=== PATIENT | female | born 1995 | race Caucasian/White ===

== ENCOUNTER 2016-12-31 17:17 | Emergency (ER) | payer OTHER ==
--- NOTE | 2016-12-31 18:31 | DIAGNOSTIC IMAGING REPORT ---
PROCEDURE: XR CHEST 2 VIEW INDICATION: FEVER, initial encounter TECHNIQUE: PA and lateral view. COMPARISON: None. FINDINGS: Lungs are clear. Cardiovascular structures are normal. Bony thorax is unremarkable. IMPRESSION: 1. Negative chest.
--- NOTE | 2016-12-31 19:05 | ED CLINICAL REPORT ---
Clinical Report - Physicians/Mid Levels [facility] [address] [place] [address] 12/31/2016 17:17 Patient: DANIA OCASIO Time Seen: 17:46; initial patient contact, initial documentation, patient care assumed. Arrived- By private vehicle. Historian- patient. HISTORY OF PRESENT ILLNESS Chief Complaint: COUGH, FEVER and MUSCLE ACHES. This started about 2 days and is still present. The illness is described as moderate. The patient has had a cough, mild difficulty breathing . The patient has also had wheezing, nasal congestion, fever and chills. She has had muscle aches and a nasal discharge. No sputum production, chest discomfort or pain, sore throat or sinus pressure. No sinus drainage or ear pain. Additional history - No known contact with a sick individual. Similar symptoms previously: None. Recent medical care: Not recently seen/assessed. REVIEW OF SYSTEMS The patient has had a headache. No vomiting or diarrhea. Denies current . All systems otherwise negative, except as recorded above. PAST HISTORY See nurses notes. PROBLEMS: Knee Injury. Cough. Asthma. --17:26 Natasha Stone R.N. ADDITIONAL SURGERIES: None. --17:26 Natasha Stone R.N. SOCIAL HISTORY Never smoker. Not exposed to second-hand smoke at home. No alcohol use or drug use. No recent travel. Is a local resident. FAMILY HISTORY Negative. ADDITIONAL NOTES The nursing notes have been reviewed with agreement regarding the chief complaint, HPI, ROS, PMH and patient medications and allergies. PHYSICAL EXAM Vital Signs: 12/31/2016 17:20 BP: 119/69. HR: 110. RR: 20. O2 saturation: 99%. Temp: 102.6 F. Pain level now: 9/10. Have been reviewed as abnormal and appear to be correct. Blood pressure normal. Tachycardic. Respiratory rate normal. Febrile. Oxygen saturation normal. Appearance: Alert. No acute distress. Eyes: Pupils equal, round and reactive to light. Eyes normal inspection. ENT: Ears normal. Nose normal. Pharynx normal. Uvula midline. Neck: Normal inspection. Neck supple. CVS: Heart rate / rhythm abnormal. Tachycardia (ventricular rate = 116). Heart sounds normal. Pulses normal. Respiratory: No respiratory distress. Breath sounds abnormal. Expiratory and inspiratory mild bilateral wheezes diffusely. Abdomen: Soft and nontender. No organomegaly. Back: Normal inspection. Skin: Skin warm and dry. Normal skin color. No rash. Normal skin turgor. Extremities: Extremities exhibit normal ROM. No lower extremity edema. Neuro: Oriented X 3. No motor deficit. No sensory deficit. LABS, X-RAYS, AND EKG Chest X-ray: Normal Chest X-Ray. (IMPRESSION: 1. Negative chest. Electronically Final signed by:Josue Singer MD 12/31/2016 6:31:20 PM). The X-rays were interpreted by the radiologist and contemporaneously by me. Laboratory Tests: Rapid Influenza Screen: (BRITTNEY: 12/31/2016 17:28) ( [id number] 12/31/2016 17:58) Final results SPECIMEN DESCRIPTION: SINUS Test Result Flag Units (Reference) RAPID INFLUENZA SCREEN CALLED TO: SARAH -- DATE: 12/31/16 INFLUENZA A: POSITIVE SCREEN FOR INFLUENZA A INFLUENZA B: NEGATIVE SCREEN FOR INFLUENZA B . PROGRESS AND PROCEDURES Course of Care: 1854. Resp even and unlabored, B breath sounds with still mild B insp wheezes, pt stated she felt much better and could breathe better. Patient counseled in person regarding the patient's stable condition, test results and diagnosis. 18:54. Differential Diagnosis: Other possible considerations: flu, uri, viral illness, bronchitis, asthma, pneumonia. Above considerations are based on history, physical exam and X-Ray data. Differential diagnosis was discussed with patient. Disposition: Discharged home in good and improved condition (19:05). Condition: good and stable. CLINICAL IMPRESSION Influenza type A with upper respiratory infection. Acute fever INSTRUCTIONS Alternate Tylenol (Acetaminophen) and Motrin (Ibuprofen) for fever, temperature greater than 101 degrees orally. Take according to label instructions. Do not work today, for two days. Drink plenty of fluids for the next 24 hours until better. Warnings: GENERAL WARNINGS: Return or contact your physician immediately if your condition worsens or changes unexpectedly, if not improving as expected, or if other problems arise. Specifically return if problem worsens. Prescription Medications: Albuterol HFA oral inhaler: inhale 1 to 2 puffs every four to six hours as needed for difficulty breathing. Dispense one (1) unit. No refills. Motrin 600 mg tablets: take 1 tablet orally every 6 hours as needed for fever. Dispense twenty (20). No refill. Follow-up: Follow up with your doctor in about five days even if well. Call for an appointment. Summary of care provided to patient. Understanding of the discharge instructions verbalized by patient. (Electronically signed by Lucero Cuevas A.R.N.P. 12/31/2016 19:20)
--- NOTE | 2016-12-31 19:05 | ED NURSING NOTES ---
Clinical Report - Nurses [facility] [address] [place] [address] 12/31/2016 17:17 Patient: DANIA OCASIO TRIAGE Triage time 1720. Acuity: LEVEL 4. Chief Complaint: FEVER, COUGH and BODY ACHES. 17:20. --17:27 Natasha Stone R.N. 17:20 12/31/16. BP: 119/69. HR: 110. RR: 20. O2 saturation: 99%. Temp: 102.6 F. Pain level now: 08/06. Additional comments: genneral body aches. --17:27 Natasha Stone R.N. Weight: 50.1 kg measured. Height/Length: 60 inches Per Patient. BMI: 21.6. Growth Chart Percentile: Weight: 15.6%. Height/Length: 4.6%. --17:25 Natasha Stone R.N. Medications Tylenol at 0500. --17:27 Natasha Stone R.N. None. --17:27 Natasha Stone R.N. Allergies No Known Drug Allergy. --17:26 Natasha Stone R.N. History Arrived by private vehicle. Historian: patient. Accompanied by family. Primary physician (susie). The patient has had chest congestion, chills, fatigue and a headache. PAST MEDICAL HX: Last normal menstrual period- 12/26. SOCIAL HX: Never smoker. No alcohol use or drug use. --17:27 Natasha Stone R.N. PROBLEMS: Knee Injury. Cough. Asthma. --17:26 Natasha Stone R.N. ADDITIONAL SURGERIES: None. --17:26 Natasha Stone R.N. Interventions ID band on patient. To treatment room. --17:27 Natasha Stone R.N. PHYSICAL ASSESSMENT 17:20. Ambulatory to room. GENERAL / NEURO / PSYCH: Alert. Oriented X 4. HEENT: Runny nose. Mucous membranes are pink. RESPIRATORY: Respirations not labored. GI / : Abdomen soft. SKIN: Skin is dry. Hot skin. --17:28 Natasha Stone R.N. NURSING PROGRESS NOTES 17:20. Head of bed elevated. Patient identifiers checked. Call light placed in reach. Side rails up. Bed placed in lowest position. Patient ready for evaluation- chart flagged. --17:27 Natasha Stone R.N. 17:28 12/31/16. Care transferred and report given (MAGGIE Lee). --17:28 Natasha Stone R.N. late entry - 17:30 12/31/16. Patient ID band checked for patient name and birthdate: patient confirmed. Flu swab obtained by RN via nasal swab. Labeled in the presence of the patient. --18:02 Santa Isaacs R.N. 17:40 12/31/2016 Ibuprofen PO Tablets 600 mg given. Allergies verified and confirmed 5 rights. --17:40 Santa Isaacs R.N. 17:59 12/31/16. ( Lab phoned positive influenza A result..). --17:59 Deepali Kong R.N. 18:04 12/31/2016 ALBUTEROL NEB W ATROVENT Neb TX Nebulizer 1 unit dose given. Given by the respiratory therapist. Allergies verified and confirmed 5 rights. --18:04 Kat Becker. DISPOSITION / DISCHARGE 19:15 12/31/16. Departure time: 19:15 Dec 31 2016. Condition at departure: improved and stable. The goals identified in the patient's plan of care were met. No learning barriers present. Reviewed medication(s) side effects, precautions, dosing and course information. Prescription(s) given to the patient. Patient verbalized understanding. Written instructions provided in Telugu. The patient was discharged home and accompanied by family. She left the Emergency Department ambulatory and via private vehicle. Family member driving. --19:15 Santa Isaacs R.N. 19:15 12/31/16. BP: 96/51. HR: 90. RR: 18. O2 saturation: 100%. Temp: 101.0 F. Pain level now 03/06. --19:15 Santa Isaacs R.N. Locked/Released at 12/31/2016 19:16 by Santa Isaacs R.N.
--- NOTE | 2016-12-31 19:05 | ED ORDER SUMMARY ---
..... Patient: DANIA OCASIO OrderSheet [facility] VisitID: [id number] [address] [place] [address] 21y, F Registration Date/Time: 12/31/2016 ORDER SHEET Weight: 50.1 kg (measured) Allergies: No Known Drug Allergy GENERAL ORDERS: Rapid Influenza Screen (Nasal Pharyngeal) (sinus) Urgent (17:38 12/31/2016 EInderbitzen R.N. verbal order read back to HBivens A.R.N.P.) (17:45 EInderbitzen R.N.) Chest 2V Urgent (17:55 12/31/2016 HBivens A.R.N.P.) (Ack 17:57 TBergley) (18:16 TBergley) MEDICATION ORDERS: Ibuprofen PO 600 mg (NOW) (17:39 12/31/2016 EInderbitzen R.N. verbal order read back to HBivens A.R.N.P.) (17:40 EInderbitzen R.N.) Albuterol Neb w Atrovent 1 unit dose (NOW) (17:55 12/31/2016 HBivens A.R.N.P.) (18:04 Missy) IV FLUIDS: ORDER SHEET NOTES: [Electronically signed by Santa Isaacs R.N. (19:16 12/31/2016)] [Electronically signed by Lucero Cuevas A.R.N.P. (19:20 12/31/2016)] [Electronically locked/signed by Santa Isaacs R.N. (19:16 12/31/2016)]
--- NOTE | 2016-12-31 19:05 | ED ORDER SUMMARY ---
..... Patient: DANIA OCASIO OrderSheet [facility] VisitID: [id number] [address] [place] [address] 21y, F Registration Date/Time: 12/31/2016 ORDER SHEET Weight: 50.1 kg (measured) Allergies: No Known Drug Allergy GENERAL ORDERS: Rapid Influenza Screen (Nasal Pharyngeal) (sinus) Urgent (17:38 12/31/2016 EInderbitzen R.N. verbal order read back to HBivens A.R.N.P.) (17:45 EInderbitzen R.N.) Chest 2V Urgent (17:55 12/31/2016 HBivens A.R.N.P.) (Ack 17:57 TBergley) (18:16 TBergley) MEDICATION ORDERS: Ibuprofen PO 600 mg (NOW) (17:39 12/31/2016 EInderbitzen R.N. verbal order read back to HBivens A.R.N.P.) (17:40 EInderbitzen R.N.) Albuterol Neb w Atrovent 1 unit dose (NOW) (17:55 12/31/2016 HBivens A.R.N.P.) (18:04 Missy) IV FLUIDS: ORDER SHEET NOTES: [Electronically signed by Santa Isaacs R.N. (19:16 12/31/2016)] [Electronically signed by Lucero Cuevas A.R.N.P. (19:20 12/31/2016)] [Electronically locked/signed by Santa Isaacs R.N. (19:16 12/31/2016)]
--- NOTE | 2016-12-31 19:20 | ED DISCHARGE INSTRUCTIONS ---
Patient: DANIA OCASIO General Instructions [facility] VisitID: [id number] [address] [place] [address] 21y, F Registration Date/Time: 12/31/2016 Influenza type A with upper respiratory infection. Acute fever INSTRUCTIONS Alternate Tylenol (Acetaminophen) and Motrin (Ibuprofen) for fever, temperature greater than 101 degrees orally. Take according to label instructions. Do not work today, for two days. Drink plenty of fluids for the next 24 hours until better. Warnings: GENERAL WARNINGS: Return or contact your physician immediately if your condition worsens or changes unexpectedly, if not improving as expected, or if other problems arise. Specifically return if problem worsens. Prescription Medications: Albuterol HFA oral inhaler: inhale 1 to 2 puffs every four to six hours as needed for difficulty breathing. Dispense one (1) unit. No refills. Motrin 600 mg tablets: take 1 tablet orally every 6 hours as needed for fever. Dispense twenty (20). No refill. Follow-up: Follow up with your doctor in about five days even if well. Call for an appointment. Summary of care provided to patient. Understanding of the discharge instructions verbalized by patient. ADDITIONAL INFORMATION Febrile Illness, Uncertain Cause (Adult) You have a fever, but the cause is not certain. A fever is a natural reaction of the body to an illness such as infections due to a virus or bacteria. In most cases, the temperature itself is not harmful. It actually helps the body fight infections. A fever does not need to be treated unless you feel very uncomfortable. Sometimes a fever can be an early sign of a more serious infection. Therefore, you should watch for the signs listed below. Home Care: If signs and symptoms are severe, rest at home for the first 2-3 days. When you resume activity, don't let yourself get too tired. Stay away from cigarette smoke (yours and other peoples). You may use acetaminophen (Tylenol) or ibuprofen (Motrin, Advil) to control fever or pain, unless another medicine was prescribed. NOTE: If you have chronic liver or kidney disease or ever had a stomach ulcer or GI bleeding, talk with your doctor before using these medicines. (Aspirin should never be used in anyone under 18 years of age who is ill with a fever. It may cause severe liver damage.) Your appetite may be poor, so a light diet is fine. Avoid dehydration by drinking 6-8 glasses of fluid per day (water, sport drinks such as Gatorade, sodas without caffeine, juices, tea, soup). Extra fluid will help loosen secretions in the nose and lungs. Bpul-aeu-sqjulzp products will not shorten the duration of the illness but may be helpful for the following symptoms: cough (Robitussin DM); sore throat (Chloraseptic lozenges or spray); nasal and sinus congestion (Actifed or Sudafed). NOTE: Do not use decongestants if you have high blood pressure. Follow Up with your doctor or as advised if you do not start to improve over the next week. Get Prompt Medical Attention if any of the following occur: Cough with lots of colored sputum (mucus) or blood in your sputum Chest pain, shortness of breath, wheezing or difficulty breathing Severe headache, face, neck, throat or ear pain Feeling drowsy or confused Abdominal pain, repeated vomiting or diarrhea Joint pain or a new rash Burning when urinating Fever of 100.4F (38C) oral or higher, not better with fever medication Feeling weak or dizzy Convulsion Taking Your Child's Temperature If your child feels hot, then check the temperature. Under 3 months : Start with a AXILLARY temperature. If it is above 99.0 F (37.2 C), take a RECTAL temperature. 3 months to 4 years : Measure a RECTAL temperature, or an EAR temperature. Over 4 years : Measure an ORAL temperature. Rectal Temperature is the most accurate. Ear temperature is not as accurate as a rectal or oral temperature, but is more convenient and can be used in the 3 month to 4 year old. Other methods such as plastic strips , forehead devices , and pacifier thermometers are even less accurate and they are not recommended. If you do not know how to use a thermometer, ask your nurse or pharmacist. Oral Method: Normal: 98.6 F (37.0 C). Range of normal: Up to 99.0 F (37.2 C). Recommended Age: Use this method for children older than 4 or 5 years of age, only if cooperative. 1) Wait at least 20 minutes after drinking or eating before taking an oral temperature. 2) Place the tip of a the thermometer under the child's tongue. 3) Have child close lips gently, without biting on the thermometer. 4) Keep under the tongue until the thermometer beeps. 5) Remove thermometer and read the temperature in the display. 6) Clean the thermometer with alcohol, or soap and water after each use. Axillary Method (UNDER THE ARM): Normal: 97.6 F (36.6 C) Range of Normal: Up to 98.6 F (37.0 C) Recommended Age: Use this method for children under 4 years of age or any uncooperative child. 1) Make sure armpit is dry and the child does not have clothing between arm and chest. 2) Place the tip of the thermometer high up in the armpit. 4) Hold the child's arm snug against their body with the thermometer in place until it beeps. 5) Remove thermometer and read the temperature in the display. 6) Clean the thermometer with alcohol, or soap and water after each use. Rectal Method: Normal: 99.6 F (37.6 C). Range of Normal: Up to 100.4 F (38.0 C). Recommended age: Use this method for children under 4 years of age or any uncooperative child. 1) Lubricate the tip of a rectal thermometer with a lubricant such as Vaseline jelly or K-Y jelly. 2) Lay your child face down across your lap, or on his/her side with knees bent toward the chest. Spread buttocks so that the anus can be easily seen. 3) Hold the thermometer between your thumb and index finger with the edge of your hand resting on the buttocks. Slowly and gently insert thermometer into the anus about one inch. The tip should slide in easily. Do not force it since they may cause injury. 4) Do not let go of the thermometer! Hold it carefully in place until it beeps. 5) Remove thermometer and read the temperature in the display. 6) Clean the thermometer with alcohol, or soap and water after each use. When To Seek Help Call your doctor or return here if you have an younger than 3 months with a temperature of 100.4 F (38.0 C) or an older child with a fever higher than 104.0 F (40.0 C). Influenza (Adult) Influenza, also called the flu, is a viral illness that affects the air passages of the lungs. It differs from the common cold. It is highly contagious. It may be spread through the air by coughing and sneezing or by direct contact (touching the sick person and then touching your own eyes, nose or mouth). Illness starts 1-3 days after exposure and lasts for 1-2 weeks. Antibiotics are usually not needed unless a complication appears (ear or sinus infection or pneumonia). Symptoms may be mild or severe and can include extreme tiredness (wanting to stay in bed all day), chills, fevers, muscle aching, soreness with eye movement, headache, and a dry, hacking cough. Home Care: Avoid exposure to cigarette smoke (yours or others). Tylenol or ibuprofen (Advil) will help fever, muscle aching, and headache. To avoid risk of liver injury, aspirin should not be used in children and teenagers under 18 with this illness. Nausea and loss of appetite are common. A light diet is recommended. Avoid dehydration by drinking 6-8 glasses of fluids per day (water, sport drinks like Gatorade, soft drinks without caffeine, juices, tea, soup, etc.). Extra fluids will also help loosen secretions in the nose and lungs. Bgyc-mxi-tlvuule cold medicines will not shorten the duration of the illness but may be helpful for the following symptoms: cough (Robitussin DM); sore throat (Chloraseptic lozenges or spray); nasal and sinus congestion (Actifed or Sudafed). [NOTE: Do not use decongestants if you have high blood pressure.] Stay home until your fever has been gone for at least 24 hours (without the use of fever-reducing medications such as ibuprofen). Follow Up with your doctor or as directed by our staff if you are not improving over the next week. Note: If you are age 65 or older, or if you have chronic asthma or COPD, we recommend a pneumococcal vaccinationevery five years. All adults shouldreceive a yearly influenza vaccination every . Ask your doctor about this. Get Prompt Medical Attention if any of the following occur: Cough with lots of colored sputum (mucus) or blood in your sputum Chest pain, shortness of breath, wheezing, or difficulty breathing Severe headache, face, neck or ear pain New rash Fever of 100.4F (38C) oral or higher, not better with fever medication Confusion, behavior change or seizure Severe weakness or dizziness Fever Control (Adult) A fever is a natural reaction of the body to an illness. In most cases, the temperature itself is not harmful. It actually helps the body fight infections. A fever does not need to be treated unless you feel very uncomfortable. Home Care If you feel warm, check your temperature. If you feel very uncomfortable and your temperature is at or higher than 100.4F (38C) oral, you may take acetaminophen (Tylenol) every 4 to 6 hours. If you cant take or keep down oral medicine, ask your pharmacist for Tylenol suppositories, which you can get without a prescription. If the fever does not respond to acetaminophen within 1 hour, take ibuprofen (Advil or Motrin). If this works, keep taking the ibuprofen every 6 to 8 hours. Note: If you have chronic liver or kidney disease or ever had a stomach ulcer or GI bleeding, talk with your doctor before using these medications. If either medication alone does not keep the fever down, you may alternate the two medicines every 3 to 4 hours, only if your healthcare provider has instructed you to do so. For example, take Motrin then wait 3 hours, take Tylenol then wait 3 hours, take Motrin, and so on. Follow your healthcare providers instructions exactly. Clothing: Keep clothing light because excess body heat is lost through the skin. The fever will go up if you wear extra layers or wrap in blankets. Fluids: Fever causes the body to lose water through evaporation. Drink plenty of fluids such as water, juice, clear sodas, yayo black, or lemonade. Do not use aspirin in anyone under 18 years of age who is ill with a fever. It can cause severe liver damage. Follow Up with your doctor or as advised by our staff if you do not get better after 48 hours. Get Prompt Medical Attention if any of the following occur: Fever does not get better after taking fever medication Fast or difficult breathing Earache, sinus pain, stiff or painful neck, headache, repeated diarrhea or vomiting You feel unusually irritable, drowsy, or confused A rash appears You feel weak or dizzy, or that you might faint Albuterol Sulfate Pressurized inhalation, suspension What is this medicine? ALBUTEROL (al BYOO ter ole) is a bronchodilator. It helps open up the airways in your lungs to make it easier to breathe. This medicine is used to treat and to prevent bronchospasm. How should I use this medicine? This medicine is for inhalation through the mouth. Follow the directions on your prescription label. Take your medicine at regular intervals. Do not use more often than directed. Make sure that you are using your inhaler correctly. Ask you doctor or health care provider if you have any questions. Talk to your marketing community liaison regarding the use of this medicine in children. Special care may be needed. What side effects may I notice from receiving this medicine? Side effects that you should report to your doctor or health animal caregiver as soon as possible: allergic reactions like skin rash, itching or hives, swelling of the face, lips, or tongue breathing problems chest pain feeling faint or lightheaded, falls high blood pressure irregular heartbeat fever muscle cramps or weakness pain, tingling, numbness in the hands or feet vomiting Side effects that usually do not require medical attention (report to your doctor or health animal caregiver if they continue or are bothersome): cough difficulty sleeping headache nervousness or trembling stomach upset stuffy or runny nose throat irritation unusual taste What may interact with this medicine? anti-infectives like chloroquine and pentamidine caffeine cisapride diuretics medicines for colds medicines for depression or for emotional or psychotic conditions medicines for weight loss including some herbal products methadone some antibiotics like clarithromycin, erythromycin, levofloxacin, and linezolid some heart medicines steroid hormones like dexamethasone, cortisone, hydrocortisone theophylline thyroid hormones What if I miss a dose? If you miss a dose, use it as soon as you can. If it is almost time for your next dose, use only that dose. Do not use double or extra doses. Where should I keep my medicine? Keep out of the reach of children. Store at room temperature between 15 and 30 degrees C (59 and 86 degrees F). The contents are under pressure and may burst when exposed to heat or flame. Do not freeze. This medicine does not work as well if it is too cold. Throw away any unused medicine after the expiration date. Inhalers need to be thrown away after the labeled number of puffs have been used or by the expiration date; whichever comes first. Ventolin HFA should be thrown away 12 months after removing from foil pouch. Check the instructions that come with your medicine. What should I tell my health care provider before I take this medicine? They need to know if you have any of the following conditions: diabetes heart disease or irregular heartbeat high blood pressure pheochromocytoma seizures thyroid disease an unusual or allergic reaction to albuterol, levalbuterol, sulfites, other medicines, foods, dyes, or preservatives or trying to get breast-feeding What should I watch for while using this medicine? Tell your doctor or health animal caregiver if your symptoms do not improve. Do not use extra albuterol. If your asthma or bronchitis gets worse while you are using this medicine, call your doctor right away. If your mouth gets dry try chewing sugarless gum or sucking hard candy. Drink water as directed. Ibuprofen Oral tablet What is this medicine? IBUPROFEN (eye BYOO proe fen) is a non-steroidal anti-inflammatory drug (NSAID). It is used for dental pain, fever, headaches or migraines, osteoarthritis, rheumatoid arthritis, or painful monthly periods. It can also relieve minor aches and pains caused by a cold, flu, or sore throat. How should I use this medicine? Take this medicine by mouth with a glass of water. Follow the directions on the prescription label. Take this medicine with food if your stomach gets upset. Try to not lie down for at least 10 minutes after you take the medicine. Take your medicine at regular intervals. Do not take your medicine more often than directed. A special MedGuide will be given to you by the pharmacist with each prescription and refill. Be sure to read this information carefully each time. Talk to your marketing community liaison regarding the use of this medicine in children. Special care may be needed. What side effects may I notice from receiving this medicine? Side effects that you should report to your doctor or health animal caregiver as soon as possible: allergic reactions like skin rash, itching or hives, swelling of the face, lips, or tongue black or bloody stools, blood in the urine or in vomit breathing problems changes in vision chest pain general ill feeling or flu-like symptoms nausea or vomiting redness, blistering, peeling or loosening of the skin, including inside the mouth slurred speech or weakness on one side of the body stomach pain unexplained weight gain or swelling unusually weak or tired yellowing of eyes or skin Side effects that usually do not require medical attention (report to your doctor or health animal caregiver if they continue or are bothersome): constipation or diarrhea dizziness gas or heartburn stomach upset What may interact with this medicine? Do not take this medicine with any of the following medications: cidofovir ketorolac methotrexate pemetrexed This medicine may also interact with the following medications: alcohol aspirin diuretics lithium other drugs for inflammation like prednisone warfarin What if I miss a dose? If you miss a dose, take it as soon as you can. If it is almost time for your next dose, take only that dose. Do not take double or extra doses. Where should I keep my medicine? Keep out of the reach of children. Store at room temperature between 15 and 30 degrees C (59 and 86 degrees F). Keep container tightly closed. Throw away any unused medicine after the expiration date. What should I tell my health care provider before I take this medicine? They need to know if you have any of these conditions: asthma cigarette smoker drink more than 3 alcohol containing drinks a day heart disease or circulation problems such as heart failure or leg edema (fluid retention) high blood pressure kidney disease liver disease stomach bleeding or ulcers an unusual or allergic reaction to ibuprofen, aspirin, other NSAIDS, other medicines, foods, dyes, or preservatives or trying to get breast-feeding What should I watch for while using this medicine? Tell your doctor or healthcare professional if your symptoms do not start to get better or if they get worse. This medicine does not prevent heart attack or stroke. In fact, this medicine may increase the chance of a heart attack or stroke. The chance may increase with longer use of this medicine and in people who have heart disease. If you take aspirin to prevent heart attack or stroke, talk with your doctor or health animal caregiver. Do not take other medicines that contain aspirin, ibuprofen, or naproxen with this medicine. Side effects such as stomach upset, nausea, or ulcers may be more likely to occur. Many medicines available without a prescription should not be taken with this medicine. This medicine can cause ulcers and bleeding in the stomach and intestines at any time during treatment. Ulcers and bleeding can happen without warning symptoms and can cause . To reduce your risk, do not smoke cigarettes or drink alcohol while you are taking this medicine. You may get drowsy or dizzy. Do not drive, use machinery, or do anything that needs mental alertness until you know how this medicine affects you. Do not stand or sit up quickly, especially if you are an older patient. This reduces the risk of dizzy or fainting spells. This medicine can cause you to bleed more easily. Try to avoid damage to your teeth and gums when you brush or floss your teeth. You have been given the following additional information: Febrile Illness, Uncertain Cause (Adult) Thermometer Use Influenza (Adult) Fever Control (Adult) Albuterol Sulfate Pressurized inhalation, suspension Ibuprofen Oral tablet Do not work today, for two days. (Electronically signed by Lucero Cuevas A.R.N.P. 12/31/2016 19:20)
--- NOTE | 2016-12-31 19:20 | ED MAR SUMMARY ---
..... Medication Administration Record [facility] [address] [place] [address] Patient: DANIA OCASIO Visit ID: [id number] 21y, F Weight: 50.1 kg Height/Length: 60 in BMI: 21.6 ALLERGIES: No Known Drug Allergy Given 17:40 12/31/2016 [place] R.N. Medication Administered: IBUPROFEN [PO], Dose: 600 mg Tablets PO. Medication Ordered: Ibuprofen PO 600 mg (NOW). Given 18:04 12/31/2016 Kat Becker, Medication Administered: ALBUTEROL NEB W ATROVENT, Dose: 1 unit dose Nebulizer Neb TX. Medication Ordered: Albuterol Neb w Atrovent 1 unit dose (NOW).
--- NOTE | 2016-12-31 19:20 | ED MED RECONCILIATION SUMMARY ---
Patient: DANIA OCASIO Medication Reconciliation Report [facility] VisitID: [id number] [address] [place] [address] 21y, F Registration Date/Time: 12/31/2016 Weight: 50.1 kg Height/Length: 60 in. BMI: 21.6 ALLERGIES: No Known Drug Allergy The patient's Home Medications are listed below: THE FOLLOWING MEDICATIONS NEED TO BE RECONCILED: Tylenol at 0500 The source(s) of the original Home Medication information: Not obtained. The following Medications were given to the patient in the Emergency Department: Ibuprofen [PO] PO 600 mg, administered: 12/31/2016 5:40:00 PM ALBUTEROL NEB W ATROVENT Neb TX 1 unit dose, administered: 12/31/2016 6:04:00 PM The following Medications were prescribed to the patient: Albuterol HFA oral inhaler: inhale 1 to 2 puffs every four to six hours as needed for difficulty breathing. Dispense one (1) unit. No refills. -- Lucero Cuevas, A.R.N.P. Motrin 600 mg tablets: take 1 tablet orally every 6 hours as needed for fever. Dispense twenty (20). No refill. -- Lucero Cuevas A.R.N.P.
--- NOTE | 2016-12-31 19:20 | ED MAR SUMMARY ---
..... Medication Administration Record [facility] [address] [place] [address] Patient: DANIA OCASIO Visit ID: [id number] 21y, F Weight: 50.1 kg Height/Length: 60 in BMI: 21.6 ALLERGIES: No Known Drug Allergy Given 17:40 12/31/2016 [place] R.N. Medication Administered: IBUPROFEN [PO], Dose: 600 mg Tablets PO. Medication Ordered: Ibuprofen PO 600 mg (NOW). Given 18:04 12/31/2016 Kat Becker, Medication Administered: ALBUTEROL NEB W ATROVENT, Dose: 1 unit dose Nebulizer Neb TX. Medication Ordered: Albuterol Neb w Atrovent 1 unit dose (NOW).
--- NOTE | 2016-12-31 19:20 | ED MED RECONCILIATION SUMMARY ---
Patient: DANAI OCASIO Medication Reconciliation Report [facility] VisitID: [id number] [address] [place] [address] 21y, F Registration Date/Time: 12/31/2016 Weight: 50.1 kg Height/Length: 60 in. BMI: 21.6 ALLERGIES: No Known Drug Allergy The patient's Home Medications are listed below: THE FOLLOWING MEDICATIONS NEED TO BE RECONCILED: Tylenol at 0500 The source(s) of the original Home Medication information: Not obtained. The following Medications were given to the patient in the Emergency Department: Ibuprofen [PO] PO 600 mg, administered: 12/31/2016 5:40:00 PM ALBUTEROL NEB W ATROVENT Neb [place] 1 unit dose, administered: 12/31/2016 6:04:00 PM The following Medications were prescribed to the patient: Albuterol HFA oral inhaler: inhale 1 to 2 puffs every four to six hours as needed for difficulty breathing. Dispense one (1) unit. No refills. -- Lucero Cuevas, A.R.N.P. Motrin 600 mg tablets: take 1 tablet orally every 6 hours as needed for fever. Dispense twenty (20). No refill. -- Lucero Cuevas A.R.N.P.
== END 2016-12-31 21:15 | disposition home or self-care (01) ==
LOC: ED SRH 17:17
DX: J10.1 Influenza due to other identified influenza virus with other respiratory manifestations (principal); R50.9 Fever, unspecified; J45.909 Unspecified asthma, uncomplicated
CPT/HCPCS: 91400